=== PATIENT | male | born 1980 | race Caucasian/White ===

== ENCOUNTER 2024-05-23 08:41 | Emergency (ER) | payer OTHER ==
[~2024-05-23] VITALS: Ht 188 cm; Wt 147.4 kg
[~2024-05-23 08:41] MED LIST: AMOX500 PO; IBUP800 PO
[2024-05-23] MEDS ORDERED: Dexamethasone Sod Phos 10 MG/ML 1ML VIAL PO ONE (10:00)
== END 2024-05-23 10:16 | disposition home or self-care (01) ==
LOC: ER 08:41
DX: J02.9 Acute pharyngitis, unspecified (principal); B34.9 Viral infection, unspecified; Z59.89 Other problems related to housing and economic circumstances
CPT/HCPCS: 87081; 87430; 99283; J1100

== ENCOUNTER 2024-11-30 10:55 | Emergency (ER) | payer OTHER ==
[~2024-11-30] VITALS: Ht 188 cm; Wt 147.4 kg
[2024-11-30 12:10] LABS: BASOPHILS ABSOLUTE AUTO 0.04 K/mm3 (0.00-0.23); BASOPHILS PERCENT AUTO 1 % (0-2); EOSINOPHILS ABSOLUTE AUTO 0.21 K/mm3 (0.00-0.68); EOSINOPHILS PERCENT AUTO 3 % (0-6); Hematocrit 48.5 % (37.0-53.0); Hemoglobin 16.1 g/dL (13.5-17.5); IMMATURE GRAN ABSOLUTE AUTO 0.05 K/mm3 (0.00-0.10); IMMATURE GRAN PERCENT AUTO 1 % (0-1); LYMPHOCYTES ABSOLUTE AUTO 1.81 K/mm3 (0.84-5.20); LYMPHOCYTES PERCENT AUTO 21 % (21-46); MONOCYTES ABSOLUTE AUTO 0.36 K/mm3 (0.16-1.47); MONOCYTES PERCENT AUTO 4 % (4-13); Mean Corpuscular HGB Conc 33.2 g/dL (31.5-36.5); Mean Corpuscular Volume 90 fL (80-100); NEUTROPHILS ABSOLUTE AUTO 6.08 K/mm3 (1.96-9.15); NEUTROPHILS PERCENT AUTO 71 % (41-73); NRBC ABSOLUTE 0.00 K/mm3 (0.00-0.02); NRBC Auto 0.0 /100 WBC (0.0-0.2); Platelet Count 224 K/mm3 (150-400); RDW Coefficient Variation 13.6 % (11.7-14.2); RDW Standard Deviation 44.3 fL (35.1-46.3)
[2024-11-30 12:43] LABS: Alanine Aminotransfer (ALT/SGP 48.0 U/L (12-78); Albumin, Blood 3.8 g/dL (3.4-5.0); Albumin/Globulin Ratio 1.0 (0.8-1.8); Anion Gap 8.0 mmol/L (3-11); Aspartate Aminotrans (AST/SGOT 30.0 U/L (12-37); Bilirubin, Total 0.5 mg/dL (0.1-1.0); Blood Urea Nitrogen 14.0 mg/dL (8-24); CO2, Blood 22.0 mmol/L (21-32); Calcium, Blood 8.7 mg/dL (8.5-10.1); Chloride, Blood 109.0 mmol/L (98-108); Creatinine, Blood 0.79 mg/dL (0.60-1.20); Globulin, Blood 3.9 g/dL (2.2-4.0); Glucose, Blood 252.0 mg/dL (70-99); Potassium, Blood 4.1 mmol/L (3.5-5.5); Sodium, Blood 135.0 mmol/L (136-145); Total Protein, Blood 7.7 g/dL (6.4-8.2)
== END 2024-11-30 16:55 | disposition home or self-care (01) ==
LOC: ER 10:55
PROVIDERS: Physician Assistant
DX: R42 Dizziness and giddiness (principal); R73.9 Hyperglycemia, unspecified; I10 Essential (primary) hypertension
CPT/HCPCS: 70496; 70498; 80053; 85025; 93005; 93010; 99284-25; Q9967

== ENCOUNTER → 2024-12-14 | Outpatient (CLI) | payer OTHER ==
[2024-12-14 15:54] LABS: BASOPHILS ABSOLUTE AUTO 0.03 K/mm3 (0.00-0.23); BASOPHILS PERCENT AUTO 1 % (0-2); EOSINOPHILS ABSOLUTE AUTO 0.14 K/mm3 (0.00-0.68); EOSINOPHILS PERCENT AUTO 2 % (0-6); Hematocrit 47.2 % (37.0-53.0); Hemoglobin 16.0 g/dL (13.5-17.5); IMMATURE GRAN ABSOLUTE AUTO 0.02 K/mm3 (0.00-0.10); IMMATURE GRAN PERCENT AUTO 0 % (0-1); LYMPHOCYTES ABSOLUTE AUTO 1.72 K/mm3 (0.84-5.20); LYMPHOCYTES PERCENT AUTO 28 % (21-46); MONOCYTES ABSOLUTE AUTO 0.32 K/mm3 (0.16-1.47); MONOCYTES PERCENT AUTO 5 % (4-13); Mean Corpuscular HGB Conc 33.9 g/dL (31.5-36.5); Mean Corpuscular Volume 88 fL (80-100); NEUTROPHILS ABSOLUTE AUTO 3.95 K/mm3 (1.96-9.15); NEUTROPHILS PERCENT AUTO 64 % (41-73); NRBC ABSOLUTE 0.00 K/mm3 (0.00-0.02); NRBC Auto 0.0 /100 WBC (0.0-0.2); Platelet Count 243 K/mm3 (150-400); RDW Coefficient Variation 13.6 % (11.7-14.2); RDW Standard Deviation 43.8 fL (35.1-46.3)
[2024-12-14 16:14] LABS: Alanine Aminotransfer (ALT/SGP 50.0 U/L (12-78); Albumin, Blood 4.0 g/dL (3.4-5.0); Albumin/Globulin Ratio 1.1 (0.8-1.8); Anion Gap 13.0 mmol/L (3-11); Aspartate Aminotrans (AST/SGOT 27.0 U/L (12-37); Bilirubin, Total 0.4 mg/dL (0.1-1.0); Blood Urea Nitrogen 14.0 mg/dL (8-24); CO2, Blood 25.0 mmol/L (21-32); Calcium, Blood 8.9 mg/dL (8.5-10.1); Chloride, Blood 104.0 mmol/L (98-108); Creatinine, Blood 0.93 mg/dL (0.60-1.20); Globulin, Blood 3.7 g/dL (2.2-4.0); Glucose, Blood 248.0 mg/dL (70-99); Magnesium, Blood 2.2 mg/dL (1.6-2.4); Phosphorus, Blood 2.2 mg/dL (2.5-4.9); Potassium, Blood 3.8 mmol/L (3.5-5.5); Sodium, Blood 138.0 mmol/L (136-145); Thyroid Stimulating Hormone 2.878 uIU/mL (0.360-4.800); Total Protein, Blood 7.7 g/dL (6.4-8.2)
== END ==
LOC: LAB SHORT 15:50 → LAB 15:50
PROVIDERS: Chiropractor
DX: E11.9 Type 2 diabetes mellitus without complications (principal); Z79.4 Long term (current) use of insulin; R53.83 Other fatigue; R79.89 Other specified abnormal findings of blood chemistry
CPT/HCPCS: 80053; 82306; 83036; 83735; 83970; 84100; 84443; 85025